=== PATIENT | female | born 1935 | race Caucasian/White ===

== ENCOUNTER 2016-03-23 14:28 | Outpatient (CLI) | payer MEDICARE, BC | END 2016-03-23 14:29 | disposition home or self-care (01) | DX: Z12.31 Encounter for screening mammogram for malignant neoplasm of breast (principal); Z80.3 Family history of malignant neoplasm of breast ==

== ENCOUNTER 2016-04-09 07:59 | Day surgery (SDC) | payer MEDICARE, BC ==
[~2016-04-09 07:59] MED LIST: PHENYLEPHRINE 2.5% OPHTH 2 ML DROPS ONE
[2016-04-09] MEDS ORDERED: MIDAZOLAM 2 MG/2 ML VIAL IVP ONE (08:10)
[2016-04-09] MEDS ORDERED: CYCLOPENTOLATE 1% OPHTH DROPS 2 ML OPTH ONE (08:10)
[2016-04-09] MEDS ORDERED: PHENYLEPHRINE 2.5% OPHTH 2 ML DROPS OPTH ONE (08:10)
[2016-04-09] MEDS ORDERED: PROPARACAINE 0.5% OPHTH DROPS 15 ML OPTH ONE ×2 (08:10→08:45)
[2016-04-09] MEDS ORDERED: KETOROLAC 0.45% OPHTH DROPS OPTH ONE (08:10)
[2016-04-09] MEDS ORDERED: LACTATED RINGERS 500 ML IV ONE (08:22)
[2016-04-09] MEDS ORDERED: EPINEPHrine 1 MG/ML AMP IVP ONE (08:45)
[2016-04-09] MEDS ORDERED: TRIAMCIN/MOXIFLOX/VANCO 1 ML VIAL IO ONE ×2 (08:45)
[2016-04-09] MEDS ORDERED: BRIMONIDINE 0.2% OPHTH DROPS 5 ML OPTH ONE (08:45)
[2016-04-09] MEDS ORDERED: CHONDR SULF/HYALURONATE SYRINGE IO ONE (08:45)
[2016-04-09] MEDS ORDERED: BSS/LIDOCAINE/EPINEPHRINE 1 ML SYRINGE IO ONE ×2 (08:45)
== END 2016-04-09 08:00 | disposition home or self-care (01) ==
PROC: 08RJ3JZ Replacement of Right Lens with Synthetic Substitute, Percutaneous Approach (ICD-10-PCS; principal; 2016-04-09 08:45)
DX: H25.811 Combined forms of age-related cataract, right eye (principal); H59.88 Other intraoperative complications of eye and adnexa, not elsewhere classified; Y77.3 Surgical instruments, materials and ophthalmic devices (including sutures) associated with adverse incidents; F17.200 Nicotine dependence, unspecified, uncomplicated; Z86.11 Personal history of tuberculosis
CPT/HCPCS: 66984; A9270; V2632

== ENCOUNTER 2016-04-16 08:39 | Day surgery (SDC) | payer MEDICARE, BC ==
[2016-04-16] MEDS ORDERED: PROPARACAINE 0.5% OPHTH DROPS 15 ML OPTH ONE ×2 (09:12→10:11)
[2016-04-16] MEDS ORDERED: KETOROLAC 0.45% OPHTH DROPS OPTH ONE (09:12)
[2016-04-16] MEDS ORDERED: PHENYLEPHRINE 2.5% OPHTH 2 ML DROPS OPTH ONE (09:12)
[2016-04-16] MEDS ORDERED: CYCLOPENTOLATE 1% OPHTH DROPS 2 ML OPTH ONE (09:12)
[2016-04-16] MEDS ORDERED: LACTATED RINGERS 500 ML IV ONE (09:24)
[2016-04-16] MEDS ORDERED: MIDAZOLAM 2 MG/2 ML VIAL IVP ONE (10:00)
[2016-04-16] MEDS ORDERED: LIDOCAINE-MPF 2% 5 ML VIAL IM ONE (10:00)
[2016-04-16] MEDS ORDERED: PROPOFOL 200 MG/20 ML VIAL IVP ONE (10:00)
[2016-04-16] MEDS ORDERED: EPINEPHrine 1 MG/ML AMP IVP ONE (10:10)
[2016-04-16] MEDS ORDERED: BRIMONIDINE 0.2% OPHTH DROPS 5 ML OPTH ONE (10:10)
[2016-04-16] MEDS ORDERED: CHONDR SULF/HYALURONATE SYRINGE IO ONE (10:10)
[2016-04-16] MEDS ORDERED: BSS/LIDOCAINE/EPINEPHRINE 1 ML SYRINGE IO ONE (10:11)
[2016-04-16] MEDS ORDERED: TIMOLOL 0.5% OPHTH DROPS OPTH ONE (10:11)
[2016-04-16] MEDS ORDERED: TRIAMCIN/MOXIFLOX/VANCO 1 ML VIAL IO ONE (10:11)
== END 2016-04-16 08:40 | disposition home or self-care (01) ==
PROC: 08DJ3ZZ Extraction of Right Lens, Percutaneous Approach (ICD-10-PCS; principal; 2016-04-16 09:50)
DX: T85.22XA Displacement of intraocular lens, initial encounter (principal); J06.9 Acute upper respiratory infection, unspecified; Z86.11 Personal history of tuberculosis
CPT/HCPCS: 66930; A9270

== ENCOUNTER 2016-04-22 15:15 | Outpatient (CLI) | payer MEDICARE, BC | END 2016-04-22 15:16 | DX: Z79.899 Other long term (current) drug therapy (principal) ==

== ENCOUNTER 2016-04-23 09:31 | Outpatient (CLI) | payer MEDICARE, BC ==
[2016-04-23] MEDS ORDERED: GADOBUTROL 7.5 MMOL/7.5 ML VIAL IVP ONE (10:34)
== END 2016-04-23 09:32 | disposition home or self-care (01) ==
DX: I63.8 Other cerebral infarction (principal)
CPT/HCPCS: 70553; A9585

== ENCOUNTER 2016-04-25 08:32 | Outpatient (CLI) | payer MEDICARE, BC | END 2016-04-25 08:33 | disposition home or self-care (01) | DX: I63.9 Cerebral infarction, unspecified (principal); E78.2 Mixed hyperlipidemia; Z79.899 Other long term (current) drug therapy ==

== ENCOUNTER 2016-04-25 11:12 | Outpatient (CLI) | payer MEDICARE, BC | END 2016-04-25 11:13 | disposition home or self-care (01) | LOC: DI 11:12 | PROVIDERS: ATTEND Internal Medicine | DX: I63.9 Cerebral infarction, unspecified (principal) | CPT/HCPCS: 93306 ==

== ENCOUNTER 2016-04-25 14:53 | Outpatient (CLI) | payer MEDICARE, BC | END 2016-04-25 14:54 | disposition home or self-care (01) | DX: I63.9 Cerebral infarction, unspecified (principal); E78.2 Mixed hyperlipidemia; Z79.899 Other long term (current) drug therapy ==

== ENCOUNTER 2016-06-08 10:44 | Outpatient (CLI) | payer MEDICARE, BC | END 2016-06-08 10:45 | disposition home or self-care (01) | DX: E78.2 Mixed hyperlipidemia (principal); Z79.899 Other long term (current) drug therapy ==

== ENCOUNTER 2016-08-19 10:14 | Outpatient (CLI) | payer MEDICARE, BC ==
[2016-08-19 11:01] LABS: BASOPHILS % (AUTO) 0.6 %; EOSINOPHILS # (AUTO) 0.2 10^3/uL (0.0-0.7); EOSINOPHILS % (AUTO) 4.6 %; HCT - HEMATOCRIT 39.2 % (37.0-47.0); HGB - HEMOGLOBIN 13.3 g/dL (12.0-16.0); LYMPHOCYTES # (AUTO) 1.1 10^3/uL (1.5-3.5); LYMPHOCYTES % (AUTO) 24.9 %; MEAN CORPUSCULAR HEMOGLOBIN 32.1 pg (27.0-31.0); MEAN CORPUSCULAR VOLUME 94.6 fL (81.0-99.0); MEAN PLATELET VOLUME 7.1 fL (7.9-10.8); MONOCYTES # (AUTO) 0.3 10^3/uL (0.0-1.0); MONOCYTES % (AUTO) 7.3 %; NEUTROPHILS # (AUTO) 2.7 10^3/uL (1.5-6.6); NEUTROPHILS % (AUTO) 62.6 %; RED BLOOD COUNT 4.15 10^6/uL (4.20-5.40); RED CELL DISTRIBUTION WIDTH 12.3 % (12.0-15.0); UNCORRECTED WHITE BLOOD COUNT 4.4 x10^3/uL; WHITE BLOOD COUNT 4.4 x10^3/uL (4.8-10.8)
[2016-08-19 11:06] LABS: CALCIUM 9.2 mg/dL (8.5-10.3); CREATININE 0.7 mg/dL (0.4-1.0); POTASSIUM 3.7 mmol/L (3.5-5.0)
--- NOTE | 2016-08-19 11:34 | XRAY Report ---
TWO-VIEW CHEST: 08/19/2016 CLINICAL INDICATION: Cough, malaise, tachycardia. FINDINGS: Frontal and lateral views of the chest demonstrate a normal cardiac silhouette. The lungs are hyperinflated, but clear. No effusion or pneumothorax is present. IMPRESSION: HYPERINFLATION, COMPATIBLE WITH COPD. NO EVIDENCE OF ACUTE CARDIOPULMONARY DISEASE. JOB #: [id number] EXT JOB #:[id number]
== END 2016-08-19 10:15 | disposition home or self-care (01) ==
LOC: DI 10:14
PROVIDERS: ATTEND Nurse Practitioner Primary Care
DX: R91.8 Other nonspecific abnormal finding of lung field (principal); R53.81 Other malaise; R09.02 Hypoxemia
CPT/HCPCS: 71020; 80048; 84484; 85025

== ENCOUNTER 2016-12-07 12:30 | Outpatient (CLI) | payer MEDICARE, BC ==
--- NOTE | 2016-12-07 13:44 | MRI Report ---
EXAM: MRI LUMBAR SPINE WITHOUT CONTRAST EXAM DATE: 12/07/2016 01:10 PM. CLINICAL HISTORY: SPINAL STENOSIS OF LUMBAR REGION. COMPARISON: MR lumbar spine 11/17/2014. TECHNIQUE: Multiplanar, multisequence T1-weighted and fluid-sensitive sequences of the lumbar spine f rom T12 to S1 without contrast. Other: None. FINDINGS: Spinal Cord: The conus terminates at L1-L2. No signal abnormality in the visualized spinal cord. 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 Alignment: There is 27 degrees of dextroconvex scoliotic curvature centered about L3. There is 5 mm o f left lateral subluxation of L2 on L3 as well as 7 mm of right lateral subluxation of L3 on L4. Ther e is grade 1 retrolisthesis of L3 on L4, L4-L5 and L5 on S1. Bone Marrow: Five [id number] lumbar vertebral bodies are assumed. There is moderate to severe en dplate degenerative change, moderate loss of disk height, Modic 2 changes, Schmorl's node formation, and disk desiccation seen throughout the lumbar spine. There is endplate edema seen at L3-L4 and L4-L 5 which is likely degenerative in nature. No definite acute fracture or marrow replacing lesion. Disk Levels/Facets: T12-L1: Unremarkable. L1-L2: Small posterior disk osteophyte complex, ligamentum flavum thickening, arthritic facet disease , and prominent dorsal epidural fat. Mild spinal canal stenosis. Mild right neural foraminal narrowin g. Findings appear progressed. L2-L3: Small posterior disk bulge, ligamentum flavum thickening, arthritic facet disease, and promine nt dorsal epidural fat. Effacement of the lateral recesses. Mild to moderate right and mild left neur al foraminal narrowing. Findings appear progressed. L3-L4: Small posterior disk bulge, ligamenta flava thickening, arthritic facet disease, and prominent dorsal epidural fat. Mild spinal canal stenosis and effacement of the left lateral recess. Moderate right and moderate to severe left neural foraminal narrowing. Findings appear progressed. L4-L5: Small posterior disk bulge, ligamentum flavum thickening, arthritic facet disease, and promine nt dorsal epidural fat. Mild to moderate spinal canal stenosis and effacement of the right lateral re cess. Severe right and moderate left neural foraminal narrowing. Findings appear progressed. L5-S1: Small posterior disk bulge, ligamentum flavum thickening, arthritic facet disease, and minimal prominent dorsal epidural fat. Effacement of the lateral recesses with contact of the bilateral S1 n erve roots. Moderate right and moderate to severe left neural foraminal narrowing. Musculature: Normal. No edema or fatty atrophy. Other: The visualized pelvic cavity is unremarkable. IMPRESSION: 1. There is 27 degrees of dextroconvex scoliotic curvature centered about L3. There is 5 mm of left l ateral subluxation of L2 on L3 as well as 7 mm of right lateral subluxation of L3 on L4. 2. There is grade 1 retrolisthesis of L3 on L4, L4-L5 and L5 on S1. 3. Moderate to severe multilevel degenerative changes appear progressed from 11/17/2014. L1-L2: Mild spinal canal stenosis. Mild right neural foraminal narrowing. L2-L3: Effacement of the lateral recesses. Mild to moderate right and mild left neural foraminal narr owing. L3-L4: Mild spinal canal stenosis and effacement of the left lateral recess. Moderate right and moder ate to severe left neural foraminal narrowing. L4-L5: Mild to moderate spinal canal stenosis and effacement of the right lateral recess. Severe righ t and moderate left neural foraminal narrowing. L5-S1: Effacement of the lateral recesses with contact of the bilateral S1 nerve roots. Moderate righ t and moderate to severe left neural foraminal narrowing. Comment: The following findings are so common in adults without low back pain that while we report th eir presence, they must be interpreted with caution and in the context of the clinical situation. (Re francy Ivey et al, Spine 2001) Prevalence of findings in patients without low back pain: Disk degeneration (any evidence): 92% Disk desiccation/T2 signal loss: 83% Disk height loss: 56% Disk bulge: 64% Disk protrusion: 32% Annular tear/high intensity zone: 38% [facility] Referring Provider Line: [phone] SITE ID: [id number]
== END 2016-12-07 12:31 | disposition home or self-care (01) ==
LOC: DI 12:30
PROVIDERS: ATTEND Physical Medicine & Rehabilitation
DX: M51.36 Other intervertebral disc degeneration, lumbar region (principal); M47.896 Other spondylosis, lumbar region; M41.86 Other forms of scoliosis, lumbar region; M43.16 Spondylolisthesis, lumbar region; M51.46 Schmorl's nodes, lumbar region
CPT/HCPCS: 72148

== ENCOUNTER 2017-01-04 11:07 | Outpatient (CLI) | payer MEDICARE, BC | END 2017-01-04 11:08 | LOC: LAB.R 11:07 | PROVIDERS: ATTEND Internal Medicine | DX: R60.0 Localized edema (principal) | CPT/HCPCS: 85379 ==

== ENCOUNTER 2018-01-03 10:00 | Outpatient (CLI) | payer MEDICARE, BC ==
[2018-01-03 22:26] LABS: EOSINOPHILS # (AUTO) 0.2 10^3/uL (0.0-0.7); EOSINOPHILS % (AUTO) 4.6 %; HGB - HEMOGLOBIN 14.1 g/dL (12.0-16.0); LYMPHOCYTES # (AUTO) 1.6 10^3/uL (1.5-3.5); LYMPHOCYTES % (AUTO) 30.4 %; MEAN CORPUSCULAR HEMOGLOBIN 32.6 pg (27.0-31.0); MEAN CORPUSCULAR HGB CONC 33.6 g/dL (32.0-36.0); MEAN CORPUSCULAR VOLUME 96.9 fL (81.0-99.0); MONOCYTES # (AUTO) 0.3 10^3/uL (0.0-1.0); PLT - PLATELET COUNT 181 10^3/uL (130-450); RED BLOOD COUNT 4.33 10^6/uL (4.20-5.40); RED CELL DISTRIBUTION WIDTH 12.6 % (12.0-15.0); WHITE BLOOD COUNT 5.1 x10^3/uL (4.8-10.8)
[2018-01-03 22:33] LABS: ALBUMIN/GLOBULIN RATIO 1.4 (1.0-2.2); ALKALINE PHOSPHATASE 53 IU/L (42-121); ALT ALANINE AMINOTRANSFERASE 20 IU/L (10-60); AST ASPARTATE AMINOTRANSFERASE 27 IU/L (10-42); BILIRUBIN,TOTAL 0.7 mg/dL (0.2-1.0); BUN - BLOOD UREA NITROGEN 15 mg/dL (6-20); CALCIUM 9.4 mg/dL (8.5-10.3); CARBON DIOXIDE - CO2 30 mmol/L (21-32); CHLORIDE 103 mmol/L (101-111); CHOL/HDL RATIO 1.8 (<4.4); CHOLESTEROL 145 mg/dL; CREATININE 0.6 mg/dL (0.4-1.0); GFR - MDRD 96 (>89); GLUCOSE 105 mg/dL (70-100); HDL CHOLESTEROL 80 mg/dL; LDL CHOLESTEROL,CALCULATED 41 mg/dL; LDL/HDL RATIO 0.5 (<4.4); SODIUM 141 mmol/L (135-145); TOTAL PROTEIN 6.8 g/dL (6.7-8.2); VLDL CHOLESTEROL 24 mg/dL
[2018-01-03 22:54] LABS: HB2 TOTAL 14.4 g/dL; HEMOGLOBIN A1C 0.54 g/dL; HEMOGLOBIN A1C % 5.6 % (4.6-6.2)
== END 2018-01-03 10:01 | disposition home or self-care (01) ==
LOC: LAB.R 10:00
PROVIDERS: ATTEND Internal Medicine
DX: R73.9 Hyperglycemia, unspecified (principal); I63.9 Cerebral infarction, unspecified; M19.90 Unspecified osteoarthritis, unspecified site; I47.1 Supraventricular tachycardia; Z79.899 Other long term (current) drug therapy
CPT/HCPCS: 80053; 80061; 83036; 83721; 84443; 85025

== ENCOUNTER 2018-08-02 11:37 | Outpatient (CLI) | payer MEDICARE, BC ==
--- NOTE | 2018-08-02 13:33 | XRAY Report ---
Reason: COUGH Procedure Date: 08/02/2018 Accession Number: [id number] / [id number] Procedure: XR - Chest 2 View X-Ray CPT Code: 09727 FULL RESULT: EXAM: CHEST RADIOGRAPHY EXAM DATE: 08/02/2018 11:48 AM. CLINICAL HISTORY: COUGH. COMPARISON: CHEST 2 VIEW PA/LAT 08/19/2016 10:56 AM. TECHNIQUE: 2 views. FINDINGS: Lungs/Pleura: Interval development of right mid and lower lung airspace opacities with increase/development of small right pleural effusion and likely trace left pleural effusion. Mediastinum: Stable tortuosity of the thoracic aorta without enlargement of the cardiac silhouette. Other: None. IMPRESSION: Right lung pneumonia with small parapneumonic effusion suspected. [facility]
== END 2018-08-02 11:38 | disposition home or self-care (01) ==
LOC: DI 11:37
PROVIDERS: ATTEND Nurse Practitioner
DX: J18.9 Pneumonia, unspecified organism (principal)
CPT/HCPCS: 71046

== ENCOUNTER 2018-08-26 16:08 | Outpatient (CLI) | payer MEDICARE, BC ==
--- NOTE | 2018-08-26 16:45 | XRAY Report ---
Reason: PNEUMONIA Procedure Date: 08/26/2018 Accession Number: [id number] / [id number] Procedure: XR - Chest 2 View X-Ray CPT Code: 17727 FULL RESULT: EXAM: CHEST RADIOGRAPHY EXAM DATE: 08/26/2018 04:22 PM. CLINICAL HISTORY: Follow-up pneumonia present on 08/02/2018. COMPARISON: CHEST 2 VIEW 08/02/2018 11:40 AM. TECHNIQUE: 2 views. FINDINGS: Lungs/Pleura: There is virtually complete resolution of the previously described right mid and right lower lung pneumonia. The lungs are otherwise clear. Mediastinum: Heart and mediastinal contours are unremarkable. Other: None. IMPRESSION: Essentially normal examination. [facility]
== END 2018-08-26 16:09 | disposition home or self-care (01) ==
LOC: DI 16:08
PROVIDERS: ATTEND Nurse Practitioner
DX: J18.9 Pneumonia, unspecified organism (principal)
CPT/HCPCS: 71046

== ENCOUNTER 2020-06-19 10:43 | Outpatient (CLI) | payer MEDICARE, BC ==
[2020-06-19 11:03] LABS: BASOPHILS % (AUTO) 0.4 %; EOSINOPHILS # (AUTO) 0.2 10^3/uL (0.0-0.7); EOSINOPHILS % (AUTO) 4.4 %; HCT - HEMATOCRIT 42.8 % (37.0-47.0); HGB - HEMOGLOBIN 14.3 g/dL (12.0-16.0); LYMPHOCYTES # (AUTO) 1.9 10^3/uL (1.5-3.5); LYMPHOCYTES % (AUTO) 38.7 %; MEAN CORPUSCULAR HEMOGLOBIN 32.4 pg (27.0-31.0); MEAN CORPUSCULAR HGB CONC 33.4 g/dL (32.0-36.0); MEAN CORPUSCULAR VOLUME 96.8 fL (81.0-99.0); MONOCYTES # (AUTO) 0.3 10^3/uL (0.0-1.0); NEUTROPHILS # (AUTO) 2.5 10^3/uL (1.5-6.6); NEUTROPHILS % (AUTO) 50.3 %; PLT - PLATELET COUNT 185 10^3/uL (130-450); RED BLOOD COUNT 4.42 10^6/uL (4.20-5.40); RED CELL DISTRIBUTION WIDTH 11.6 % (12.0-15.0)
[2020-06-19 11:20] LABS: ALBUMIN 4.2 g/dL (3.2-5.5); ALBUMIN/GLOBULIN RATIO 1.7 (1.0-2.2); ALKALINE PHOSPHATASE 63 IU/L (42-121); ALT ALANINE AMINOTRANSFERASE 19 IU/L (10-60); AST ASPARTATE AMINOTRANSFERASE 25 IU/L (10-42); BILIRUBIN,TOTAL 0.5 mg/dL (0.2-1.0); BUN - BLOOD UREA NITROGEN 13 mg/dL (6-20); CALCIUM 9.4 mg/dL (8.5-10.3); CARBON DIOXIDE - CO2 28 mmol/L (21-32); CHLORIDE 107 mmol/L (101-111); CHOL/HDL RATIO 2.1 (<4.4); CHOLESTEROL 162 mg/dL; CREATININE 0.6 mg/dL (0.4-1.0); GFR - MDRD 95 (>89); GLUCOSE 121 mg/dL (70-100); HDL CHOLESTEROL 76 mg/dL; LDL CHOLESTEROL,CALCULATED 71 mg/dL; LDL/HDL RATIO 0.9 (<4.4); SODIUM 142 mmol/L (135-145); TOTAL PROTEIN 6.7 g/dL (6.7-8.2); TRIGLYCERIDES 74 mg/dL; VLDL CHOLESTEROL 15 mg/dL
[2020-06-19 11:30] LABS: THYROID STIMULATING HORMONE 1.36 uIU/mL (0.34-5.60)
== END 2020-06-19 10:44 | disposition home or self-care (01) ==
LOC: LAB 10:43
PROVIDERS: ATTEND Nurse Practitioner
DX: R73.9 Hyperglycemia, unspecified (principal); I63.9 Cerebral infarction, unspecified; I47.1 Supraventricular tachycardia; E66.3 Overweight
CPT/HCPCS: 36415; 80053; 80061; 83721; 84443; 85025

== ENCOUNTER 2021-07-09 15:55 | Emergency (ER) | payer MEDICARE, BC ==
--- NOTE | 2021-07-09 19:21 | ED Physician Documentation ---
History of Present Illness - Stated complaint Stated Complaint: LEFT LEG SWELL/PX - Chief complaint Chief Complaint: Ext Problem - History obtained from History obtained from: Patient, Family - History of Present Illness Timing: How many weeks ago (3) Pain level max: 0 Pain level now: 0 - Additonal information Additional information: 86-year-old female presents to the emergency department with bilateral lower extremity edema. She was seen at the walk-in clinic today and sent here for a possible DVT. Patient has no leg pain. No calf pain. No tenderness. No shortness of breath. No chest pain. No fevers. No chills. She spends most of her time sitting in the chair. Does not ever elevate her legs. Does not use compression socks. Nothing makes it better or worse Review of Systems Ten Systems: 10 systems reviewed and negative Constitutional: denies: Fever, Chills Throat: denies: Sore throat Cardiac: denies: Chest pain / pressure, Palpitations Respiratory: denies: Dyspnea, Cough GI: denies: Nausea, Vomiting Skin: denies: Rash Musculoskeletal: denies: Neck pain, Back pain Neurologic: denies: Headache PD PAST MEDICAL HISTORY - Past Medical History Cardiovascular: None Respiratory: None Endocrine/Autoimmune: None GI: GERD : None HEENT: Chronic hearing loss Psych: None, Anxiety Musculoskeletal: Osteoarthritis, Chronic back pain Derm: None - Past Surgical History Past Surgical History: Yes /[employer]: Dilation and currettage, Other HEENT: Cataracts, Tonsil/Adenoidectomy - Present Medications Home Medications: Ambulatory Orders Medication Instructions Recorded Confirmed Gabapentin 2 tab PO DAILY 02/12/16 04/16/16 Clopidogrel [Plavix] 75 mg PO DAILY 07/09/21 07/09/21 - Allergies Allergies/Adverse Reactions: Allergies Allergy/AdvReac Type Severity Reaction Status Date / Time lidocaine AdvReac Intermediate tachycardia Verified 07/09/21 16:07 meperidine HCl * AdvReac Intermediate hallucinate Verified 07/09/21 16:07 [From Demerol] - Social History Does the pt smoke?: No Smoking Status: Never smoker Does the pt drink ETOH?: No Does the pt have substance abuse?: No PD ED PE NORMAL - Vitals Vital signs reviewed: Yes - General General: Alert and oriented X 3, No acute distress - HEENT HEENT: PERRL, Moist mucous membranes - Neck Neck: Supple, no meningeal sign - Cardiac Cardiac: RRR, Strong equal pulses - Respiratory Respiratory: No respiratory distress, Clear bilaterally - Abdomen Abdomen: Soft, Non tender, Non distended - Derm Derm: Warm and dry - Extremities Extremities: No calf tenderness / cord, Other (1+ bilateral lower extremity pitting edema. No calf tenderness or cord. Neurovascular intact) - Neuro Neuro: Alert and oriented X 3 - Psych Psych: Normal mood, Normal affect Results - Vitals Vitals: Vital Signs - 24 hr 07/09/21 07/09/21 07/09/21 16:05 20:05 20:06 Temperature 36.3 C L 36.7 C 36.7 C Heart Rate 80 80 Respiratory 14 14 14 Rate Blood Pressure 150/75 H 149/84 H 149/84 H O2 Saturation 96 99 99 Oxygen O2 Source Room air - Rads (name of study) Duplex ultrasound left lower extremity Radiology: Final report received, EMP read contemporaneously, See rad report (No acute abnormality) PD MEDICAL DECISION MAKING - ED course Complexity details: reviewed results, re-evaluated patient, considered differential, d/w patient, d/w family ED course: Patient with what appears to be dependent edema in her bilateral lower extremities. No evidence of DVT on ultrasound. Recommend compression and elevation at home. Recommend increase her walking. No evidence of acute heart failure. No dyspnea. No hypoxia. Patient and family counseled regarding signs and symptoms for which I believe and urgent re-evaluation would be necessary. Patient with good understanding of and agreement to plan and is comfortable going home at this time This document was made in part using voice recognition software. While efforts are made to proofread this document, sound alike and grammatical errors may occur. Departure - Departure Disposition: 01 Home, Self Care Clinical Impression: Dependent edema Condition: Good Instructions: ED Edema Legs Bilateral Follow-Up: Your,doctor in 1 week [Other] Comments: Please follow-up with your doctor for further care. Your ultrasound does not show any blood clots in your legs today. This appears to be secondary to dependent edema. Compression stockings may help as well as elevating your legs whenever possible. Please make sure you are getting up and walking is much as possible as well. Return if you worsen. Discharge Date/Time: 07/09/21 20:05
--- NOTE | 2021-07-09 19:38 | Ultrasound Report ---
PROCEDURE: Duplex Ext Veins Left INDICATIONS: pain/swelling TECHNIQUE: Real-time imaging, as well as color and pulse Doppler interrogation, were performed of the lower extr emity deep veins from the inguinal ligament to the popliteal fossa. COMPARISON: None. FINDINGS: The deep veins are normally compressible, and free of intraluminal thrombus. Color and pu lse Doppler demonstrate normal phasic intraluminal flow. There is normal augmentation response to di stal compression maneuver. IMPRESSION: No evidence of left lower extremity DVT. Reviewed by: Glen Valenzuela MD on 07/09/2021 7:37 PM PDT Approved by: Glen Valenzuela MD on 07/09/2021 7:37 PM PDT Station ID: [id number]
[2021-07-09 20:06] VITALS: BP 149/84
== END 2021-07-09 20:05 | disposition home or self-care (01) ==
LOC: ED 15:55
DX: R60.9 Edema, unspecified (principal)
CPT/HCPCS: 99282; 99284

== ENCOUNTER 2021-10-09 16:30 | Outpatient (CLI) | payer MEDICARE, BC ==
[2021-10-09 21:05] LABS: BASOPHILS % (AUTO) 0.5 %; EOSINOPHILS # (AUTO) 0.3 10^3/uL (0.0-0.7); EOSINOPHILS % (AUTO) 4.9 %; HCT - HEMATOCRIT 41.9 % (37.0-47.0); HGB - HEMOGLOBIN 13.9 g/dL (12.0-16.0); LYMPHOCYTES # (AUTO) 1.7 10^3/uL (1.5-3.5); LYMPHOCYTES % (AUTO) 30.6 %; MEAN CORPUSCULAR HEMOGLOBIN 32.5 pg (27.0-31.0); MEAN CORPUSCULAR HGB CONC 33.2 g/dL (32.0-36.0); MEAN CORPUSCULAR VOLUME 97.9 fL (81.0-99.0); MEAN PLATELET VOLUME 9.6 fL (7.9-10.8); MONOCYTES # (AUTO) 0.4 10^3/uL (0.0-1.0); MONOCYTES % (AUTO) 6.6 %; NEUTROPHILS # (AUTO) 3.1 10^3/uL (1.5-6.6); NEUTROPHILS % (AUTO) 57.2 %; PLT - PLATELET COUNT 184 10^3/uL (130-450); RED BLOOD COUNT 4.28 10^6/uL (4.20-5.40); RED CELL DISTRIBUTION WIDTH 12.1 % (12.0-15.0); WHITE BLOOD COUNT 5.5 x10^3/uL (4.8-10.8)
[2021-10-09 21:16] LABS: ALBUMIN 4.3 g/dL (3.2-5.5); ALBUMIN/GLOBULIN RATIO 1.7 (1.0-2.2); ALKALINE PHOSPHATASE 62 IU/L (42-121); ALT ALANINE AMINOTRANSFERASE 13 IU/L (10-60); AST ASPARTATE AMINOTRANSFERASE 22 IU/L (10-42); BILIRUBIN,TOTAL 0.5 mg/dL (0.2-1.0); BUN - BLOOD UREA NITROGEN 13 mg/dL (6-20); CALCIUM 9.6 mg/dL (8.5-10.3); CARBON DIOXIDE - CO2 31 mmol/L (21-32); CHLORIDE 102 mmol/L (101-111); CHOL/HDL RATIO 2.1 (<4.4); CHOLESTEROL 162 mg/dL; CREATININE 0.6 mg/dL (0.4-1.0); GFR - MDRD 95 (>89); GLUCOSE 91 mg/dL (70-100); HDL CHOLESTEROL 79 mg/dL; LDL CHOLESTEROL,CALCULATED 62 mg/dL; LDL/HDL RATIO 0.8 (<4.4); POTASSIUM 4.1 mmol/L (3.5-5.0); SODIUM 140 mmol/L (135-145); TOTAL PROTEIN 6.9 g/dL (6.7-8.2); TRIGLYCERIDES 107 mg/dL; VLDL CHOLESTEROL 21 mg/dL
[2021-10-09 21:27] LABS: THYROID STIMULATING HORMONE 0.98 uIU/mL (0.34-5.60)
== END 2021-10-09 16:31 | disposition home or self-care (01) ==
LOC: LAB.N 16:30
PROVIDERS: ATTEND Family Medicine
DX: R73.9 Hyperglycemia, unspecified (principal); I63.9 Cerebral infarction, unspecified
CPT/HCPCS: 36415; 80053; 80061; 83721; 84443; 85025

== ENCOUNTER 2023-08-30 10:34 | Outpatient (CLI) | payer MEDICARE, BC ==
[2023-08-30 10:50] LABS: BASOPHILS % (AUTO) 0.9 %; EOSINOPHILS # (AUTO) 0.2 10^3/uL (0.0-0.7); HCT - HEMATOCRIT 41.7 % (37.0-47.0); HGB - HEMOGLOBIN 13.5 g/dL (12.0-16.0); LYMPHOCYTES # (AUTO) 1.7 10^3/uL (1.5-3.5); LYMPHOCYTES % (AUTO) 38.4 %; MEAN CORPUSCULAR HEMOGLOBIN 31.8 pg (27.0-31.0); MEAN CORPUSCULAR HGB CONC 32.4 g/dL (32.0-36.0); MEAN CORPUSCULAR VOLUME 98.3 fL (81.0-99.0); MEAN PLATELET VOLUME 8.9 fL (7.9-10.8); MONOCYTES # (AUTO) 0.2 10^3/uL (0.0-1.0); MONOCYTES % (AUTO) 4.8 %; NEUTROPHILS # (AUTO) 2.2 10^3/uL (1.5-6.6); NEUTROPHILS % (AUTO) 50.9 %; PLT - PLATELET COUNT 164 10^3/uL (130-450); RED BLOOD COUNT 4.24 10^6/uL (4.20-5.40); RED CELL DISTRIBUTION WIDTH 12.1 % (12.0-15.0); WHITE BLOOD COUNT 4.4 x10^3/uL (4.8-10.8)
[2023-08-30 11:03] LABS: ALBUMIN 4.1 g/dL (3.2-5.5); ALBUMIN/GLOBULIN RATIO 1.7 (1.0-2.2); ALKALINE PHOSPHATASE 61 IU/L (42-121); ALT ALANINE AMINOTRANSFERASE 15 IU/L (10-60); AST ASPARTATE AMINOTRANSFERASE 22 IU/L (10-42); BILIRUBIN,TOTAL 0.6 mg/dL (0.2-1.0); BUN - BLOOD UREA NITROGEN 12 mg/dL (6-20); CALCIUM 9.7 mg/dL (8.5-10.3); CARBON DIOXIDE - CO2 32 mmol/L (21-32); CHLORIDE 106 mmol/L (101-111); CHOL/HDL RATIO 2.1 (<4.4); CHOLESTEROL 156 mg/dL; CREATININE 0.6 mg/dL (0.6-1.3); GFR - MDRD 94 (>89); GLUCOSE 123 mg/dL (74-104); HDL CHOLESTEROL 73 mg/dL; LDL CHOLESTEROL,CALCULATED 61 mg/dL; LDL/HDL RATIO 0.8 (<4.4); SODIUM 142 mmol/L (135-145); TOTAL PROTEIN 6.5 g/dL (6.4-8.9); TRIGLYCERIDES 110 mg/dL (48-352); VLDL CHOLESTEROL 22 mg/dL
== END 2023-08-30 10:35 | disposition home or self-care (01) ==
LOC: LAB 10:34
PROVIDERS: ATTEND Physician Assistant
DX: R73.9 Hyperglycemia, unspecified (principal); Z79.02 Long term (current) use of antithrombotics/antiplatelets; Z86.79 Personal history of other diseases of the circulatory system
CPT/HCPCS: 36415; 80053; 80061; 83721; 85025

== ENCOUNTER 2023-09-03 08:00 | Outpatient (CLI) | payer MEDICARE, BC ==
[2023-09-03 18:37] LABS: BILIRUBIN,URINE NEGATIVE (NEGATIVE); GLUCOSE, URINE (UA) NEGATIVE (NEGATIVE); KETONES,URINE (UA) NEGATIVE (NEGATIVE); LEUKOCYTE ESTERASE, URINE NEGATIVE (NEGATIVE); NITRITE,URINE NEGATIVE (NEGATIVE); OCCULT BLOOD,URINE NEGATIVE (NEGATIVE); PH,URINE 7.5 PH (5.0-7.5); PROTEIN,URINE NEGATIVE (NEGATIVE); UROBILINOGEN,URINE 0.2 (NORMAL) E.U./dL (NORMAL)
[2023-09-03 18:47] LABS: CLARITY,URINE CLOUDY (CLEAR)
[2023-09-03 19:13] LABS: AMORPHOUS SEDIMENT,UR Marked /LPF; BACTERIA,URINE Rare /HPF (None Seen); RBC,URINE None Seen /HPF (0-5); SQUAMOUS EPITHELIAL CELL,UR FEW Squamous (<= Few); WBC,URINE 0-3 /HPF (0-5)
== END 2023-09-03 23:59 | disposition home or self-care (01) ==
LOC: LAB.N 08:00
PROVIDERS: ATTEND Physician Assistant
DX: R10.30 Lower abdominal pain, unspecified (principal)
CPT/HCPCS: 81001; 87086